=== PATIENT | female | born 1995 | race Hispanic/Latino ===

== ENCOUNTER 2022-10-15 04:08 | Emergency (ER) | payer SELFPAY ==
[2022-10-15] MEDS ORDERED: Morphine 4 MG/ML VIAL ONE (04:39)
[2022-10-15] MEDS ORDERED: Ondansetron PF 4 MG/2 ML Vial ONE (04:40)
[2022-10-15 05:02] LABS: BHCG - Serum Negative (NEGATIVE); Pregs Control Background? CLEAR/WHITE (CLR/WHITE); Pregs Control Bar Appear? YES (CONTROL BAR)
[2022-10-15 05:11] LABS: #Basophils 0.1 10x3/uL (0.0-0.2); #Eosinphils 0.3 10x3/uL (0.0-0.5); #Monocytes 0.7 10x3/uL (0.0-1.1); #Neutrophils 5.1 10x3/uL (1.5-8.4); %Basophils 0.5 % (0.0-2.0); %Lymphocytes 37.2 % (18.0-47.0); %Monocytes 6.9 % (0.0-10.0); ALT (SGPT) 13 U/L (8-55); AST (SGOT) 17 U/L (5-34); Albumin 4.1 g/dL (3.5-5.0); Alkaline Phosphatase 84 U/L (40-110); Anion Gap 11 mmol/L (10-20); BUN (Urea Nitrogen) 11 mg/dL (7.0-18.7); Bilirubin, Total 0.5 mg/dL (0.2-1.2); Calc. Creatinine Clearance 0 mL/min (70-130); Calcium 8.8 mg/dL (7.8-10.44); Carbon Dioxide 23 mmol/L (22-29); Chloride 108 mmol/L (98-107); Estimated GFR 102; Globulin 2.7 g/dL (2.4-3.5); Glucose 102 mg/dL (70-105); Hemoglobin 11.1 g/dL (12.0-15.5); Lipase 27 U/L (8-78); Mean Corpuscular HGB CONC 32.5 g/dL (32.0-36.0); Mean Corpuscular Hemoglobin 26.5 pg (27.0-33.0); Mean Corpuscular Volume 81.6 fl (81.6-98.3); Mean Platelet Volume 10.2 fl (7.4-10.4); Platelet Count 326 10x3/uL (150-450); Potassium 3.5 mmol/L (3.5-5.1); Protein, Total 6.8 g/dL (6.0-8.3); RBC Distribution Width 14.6 % (11.5-14.5); Red Blood Cell (RBC) Count 4.19 10x6/uL (3.90-5.03); Sodium 138 mmol/L (136-145); White Blood Cell (WBC) Count 9.8 10x3/uL (3.5-10.5)
== END 2022-10-15 07:30 | disposition home or self-care (01) ==
LOC: CSHERS 04:08
DX: K80.50 Calculus of bile duct without cholangitis or cholecystitis without obstruction (principal); F17.290 Nicotine dependence, other tobacco product, uncomplicated
CPT/HCPCS: 76705; 80053; 83690; 84703; 85025; 96361; 96374; 96375; J2270; J2405